=== PATIENT | male | born 1995 | race Caucasian/White ===

== ENCOUNTER 2016-12-01 17:43 | Emergency (ER) | payer OTHER | END 2016-12-01 20:47 | disposition home or self-care (01) | LOC: ER1 17:43 | DX: S60.414A Abrasion of right ring finger, initial encounter (principal); R60.0 Localized edema; Z23 Encounter for immunization; F17.290 Nicotine dependence, other tobacco product, uncomplicated; W23.0XXA Caught, crushed, jammed, or pinched between moving objects, initial encounter; Y92.69 Other specified industrial and construction area as the place of occurrence of the external cause; Y99.0 Civilian activity done for income or pay | CPT/HCPCS: 73130; 90471; 90714; 99283 ==